=== PATIENT | female | born 1975 | race Caucasian/White ===

== ENCOUNTER 2022-07-17 13:50 | Emergency (ER) | payer BC ==
[2022-07-17] MEDS ORDERED: Ketorolac 60 MG/2 ML SDV IM ONE (14:05)
[2022-07-17] MEDS ORDERED: traMADol 50 MG Tab ONE (15:00)
== END 2022-07-17 15:15 | disposition home or self-care (01) ==
LOC: LB.ED 13:50
DX: S42.115A Nondisplaced fracture of body of scapula, left shoulder, initial encounter for closed fracture (principal); J45.909 Unspecified asthma, uncomplicated; Z72.0 Tobacco use; Z88.0 Allergy status to penicillin; Z88.5 Allergy status to narcotic agent; W00.0XXA Fall on same level due to ice and snow, initial encounter
CPT/HCPCS: 73030-LT; 73060-LT; 96372; 99282; 99283; A9270-GY; J1885